=== PATIENT | female | born 1940 | race Caucasian/White ===

== ENCOUNTER → 2016-08-19 | Outpatient (CLI) | payer MEDICARE, BC ==
[~2016-08-19] MED LIST: FLAX SEED OIL1000 MG PO; HCTZ 25MG TAB25 MG PO; KLOR-CON 1010 MEQ PO; LOTRISONE; MULTI VITAMINS1 TAB PO; NIASPAN1000 MG PO; NIFEDICAL XL; PRILOTC; PROFE180 MG PO; PROVENTIL0.09 MG/A1 IH; SYNTHROID 0.0.025 MG PO; UNABLE; VITAMIN C500 MG PO
== END ==
LOC: MC.RAD 14:39
DX: Z12.31 Encounter for screening mammogram for malignant neoplasm of breast (principal)

== ENCOUNTER 2016-09-14 13:35 | Outpatient (RCR) | payer MEDICARE, BC | END 2016-12-13 | LOC: WSST | DX: R13.13 Dysphagia, pharyngeal phase (principal) | CPT/HCPCS: G8996-GN; G8997-GN ==

== ENCOUNTER → 2016-09-21 | Outpatient (CLI) | payer MEDICARE, BC | LOC: COL.RAD 11:10 | DX: R13.13 Dysphagia, pharyngeal phase (principal) | CPT/HCPCS: G8996-GN; G8997-GN; G8998-GN ==

== ENCOUNTER → 2017-10-04 | Outpatient (CLI) | payer MEDICARE, BC | LOC: MC.RAD 09:48 | DX: Z12.31 Encounter for screening mammogram for malignant neoplasm of breast (principal) ==

== ENCOUNTER 2017-11-09 15:33 | Inpatient (IN) | payer MEDICARE, BC ==
[~2017-11-09 15:33] MED LIST changes: +ADALAT CC60 MG PO; -FLAX SEED OIL1000 MG PO; +NATURAL FLAX1000 MG PO; -NIFEDICAL XL
[2017-12-20] MEDS ORDERED: AZILECT0.5 MG PO (08:38)
[2017-12-20] MEDS ORDERED: FLONASEALLERGY NS (08:39)
[2017-12-20] MEDS ORDERED: ZETIA 10MG TAB10 MG PO (08:39)
[2017-12-20] MEDS ORDERED: PRESERVISION1 SGL PO (08:40)
[2017-12-20] MEDS ORDERED: [UNRECOGNIZED DRUG - OTHER] PO (08:40)
[2017-12-20] MEDS ORDERED: THERATEARS 0.60.6 ML OP (08:41)
[2017-12-20] MEDS ORDERED: SYSTANE 0.4%-0.1 SOL OP (08:41)
[2017-12-20] MEDS ORDERED: PROCARDIA XL 6060 MG PO (08:45)
[2018-02-06 15:55] VITALS: BP 105/49; PULSE 66; TEMP 97.3
[2018-02-06 16:10] VITALS: BP 114/49; PULSE 61
[2018-02-06 16:25] VITALS: BP 105/49; PULSE 58
[2018-02-06 16:40] VITALS: BP 114/49; PULSE 61
[2018-02-06 17:10] VITALS: BP 112/52; PULSE 59
[2018-02-06 17:40] VITALS: BP 126/55; PULSE 61
[2018-02-07 00:34] VITALS: BP 144/79; PULSE 80; TEMP 98.3
[2018-02-07 03:37] VITALS: BP 110/63; PULSE 54; TEMP 98.6
[2018-02-07 07:30] LABS: HEMOGLOBIN 11.7 g/dl (12.5-16.0)
[2018-02-07 07:35] LABS: HEMATOCRIT 35.2 % (37.0-47.0)
[2018-02-07 08:22] VITALS: BP 115/67; PULSE 62; TEMP 97.6
[2018-02-07 12:10] VITALS: BP 102/45; PULSE 57; TEMP 97.7
[2018-02-07 16:26] VITALS: BP 113/56; PULSE 61; TEMP 97.7
[2018-02-07 21:09] VITALS: BP 134/58; PULSE 81; TEMP 98
[2018-02-08 00:26] VITALS: BP 127/60; PULSE 92; TEMP 98
[2018-02-08 04:45] VITALS: BP 117/49; PULSE 60; TEMP 98.5
[2018-02-08 08:50] VITALS: BP 138/54; PULSE 73; TEMP 98.1
[2018-02-08 11:40] VITALS: BP 125/53; PULSE 76; TEMP 98.5
[2018-02-08] MEDS ORDERED: ASPI325T6 PO (14:57)
[2018-02-08] MEDS ORDERED: NORCO 325 MG-7.1 TAB PO (14:58)
[2018-02-08] MEDS ORDERED: ROXICODONE 55 MG/TAB PO (14:59)
[2018-02-08 15:44] VITALS: BP 128/55; PULSE 70; TEMP 98.1
[2018-02-08 21:15] VITALS: BP 149/54; PULSE 87; TEMP 97.6
[2018-02-09 00:27] VITALS: BP 114/48; PULSE 75; TEMP 98.4
[2018-02-09 03:55] VITALS: BP 121/51; PULSE 77; TEMP 97.4
[2018-02-09 08:28] VITALS: BP 122/51; PULSE 78; TEMP 97.8
[2018-02-09 10:46] VITALS: BP 122/51; PULSE 78; TEMP 97.8
[2018-02-09 11:35] VITALS: BP 119/49; PULSE 69; TEMP 98.1
== END 2018-02-09 13:00 | DRG 470 ==
LOC: JCC 01-01 11:00
PROVIDERS: Orthopaedic Surgery
PROC: 0SR904A Replacement of Right Hip Joint with Ceramic on Polyethylene Synthetic Substitute, Uncemented, Open Approach (ICD-10-PCS; principal; 2018-02-06 07:30)
DX: M16.11 Unilateral primary osteoarthritis, right hip (principal); I10 Essential (primary) hypertension; M79.7 Fibromyalgia; J45.909 Unspecified asthma, uncomplicated; E78.5 Hyperlipidemia, unspecified
CPT/HCPCS: A4314; A9284; C1713; C1776; J0690; J2250; J2704; J3010; J7120

== ENCOUNTER → 2018-01-31 | Outpatient (CLI) | payer MEDICARE, BC ==
[~2018-01-31] MED LIST changes: +AZILECT0.5 MG PO; +FLONASEALLERGY NS; +PRESERVISION1 SGL PO; +PROCARDIA XL 6060 MG PO; +SYSTANE 0.4%-0.1 SOL OP; +THERATEARS 0.60.6 ML OP; +ZETIA 10MG TAB10 MG PO; +[UNRECOGNIZED DRUG - OTHER] PO
[2018-01-31 12:06] LABS: HIV 1/2 Antibodies Non-Reactive; HIV-1p24 Antigen Non-Reactive
== END ==
LOC: COL.LAB 11:04
PROVIDERS: Orthopaedic Surgery
DX: Z01.812 Encounter for preprocedural laboratory examination (principal); M16.11 Unilateral primary osteoarthritis, right hip

== ENCOUNTER → 2018-05-09 | Outpatient (CLI) | payer MEDICARE, BC ==
[~2018-05-09] MED LIST changes: +ASPI325T6 PO; +NORCO 325 MG-7.1 TAB PO; +ROXICODONE 55 MG/TAB PO
== END ==
LOC: COL.RAD 12:28
DX: R22.1 Localized swelling, mass and lump, neck (principal)

== ENCOUNTER 2018-06-08 10:15 | Day surgery (SDC) | payer MEDICARE, BC ==
[~2018-06-08] VITALS: Ht 162.6 cm; Wt 85.6 kg
[2018-06-08 11:09] VITALS: BP 151/73; PULSE 66; TEMP 97.6
[2018-06-08] MEDS ORDERED: VITAMIN C500 MG PO (11:28)
[2018-06-08] MEDS ORDERED: VITAMIN D250 MCG PO (11:28)
[2018-06-08] MEDS ORDERED: OSTEO-BI-FLEX 21 TAB PO (11:29)
[2018-06-08] MEDS ORDERED: FOLIC ACID 40400 MCG PO (11:29)
--- NOTE | 2018-06-08 11:48 | NUR ---
Initial visit; Patient requested prayer prior to surgical procedure. Field Spec offered encouragement and prayer.
[2018-06-08 13:50] VITALS: BP 137/59; PULSE 73; TEMP 97.3
--- NOTE | 2018-06-08 13:50 | NUR ---
Patient brought back to bay 5. Alert and oriented. Vital signs obtained, WNL. States she would like orange juice and muffin tolerating well. Sanchez set to the 2 areas of right neck intact. No complaints of pain or nausea. Son Gene at bedside. Call dietrich within reach, will continue to monitor.
[2018-06-08 14:05] VITALS: BP 146/71; PULSE 80
--- NOTE | 2018-06-08 14:05 | NUR ---
Patient states she is feeling well. All juice and muffin consumed without difficulty. Family at bedside. Call dietrich within reach will continue to monitor.
[2018-06-08 14:25] VITALS: BP 132/64; PULSE 77; TEMP 98
--- NOTE | 2018-06-08 14:25 | NUR ---
Patient states that she is ready to go home. Ambulated to bathroom without difficulty. Spontaneous void obtained. Will continue to monitor.
[2018-06-08 14:27] VITALS: BP 137/59; PULSE 14; TEMP 97.8
--- NOTE | 2018-06-08 14:50 | NUR ---
Discharge instructions reviewed with patient. Verbalized understanding. Follow up appointment card given. IV removed per MD orders.
--- NOTE | 2018-06-08 15:01 | NUR ---
Patient wheeled down to lobby via wheel chair. Son Gene to drive patient home.
== END 2018-06-08 15:01 | disposition home or self-care (01) ==
LOC: SDCO 10:15
DX: L72.0 Epidermal cyst (principal); E03.9 Hypothyroidism, unspecified; I10 Essential (primary) hypertension; J45.909 Unspecified asthma, uncomplicated; Z85.828 Personal history of other malignant neoplasm of skin; Z79.899 Other long term (current) drug therapy; K21.9 Gastro-esophageal reflux disease without esophagitis; E78.00 Pure hypercholesterolemia, unspecified; G20 Parkinson's disease; M10.9 Gout, unspecified; Z90.710 Acquired absence of both cervix and uterus; Z90.49 Acquired absence of other specified parts of digestive tract; Z96.641 Presence of right artificial hip joint; Z80.8 Family history of malignant neoplasm of other organs or systems; M79.7 Fibromyalgia; G89.29 Other chronic pain; M25.561 Pain in right knee
CPT/HCPCS: J0690; J1100; J1885; J2250; J2405; J2704; J3010; J7120

== ENCOUNTER → 2018-10-08 | Outpatient (CLI) | payer MEDICARE, BC ==
[~2018-10-08] MED LIST changes: +FOLIC ACID 40400 MCG PO; +OSTEO-BI-FLEX 21 TAB PO; +VITAMIN D250 MCG PO
== END ==
LOC: MC.RAD 10:59
DX: Z12.31 Encounter for screening mammogram for malignant neoplasm of breast (principal)

== ENCOUNTER → 2019-10-10 | Outpatient (CLI) | payer MEDICARE, BC | LOC: MC.RAD 10:59 | DX: Z12.31 Encounter for screening mammogram for malignant neoplasm of breast (principal) ==

== ENCOUNTER 2023-01-24 10:21 | Inpatient (IN) | payer MEDICARE, BC ==
[2023-01-24] VITALS (526 sets, daily range): BP systolic 115–152; BP diastolic 62–65; PULSE 68–71; TEMP 97.4–97.7; O2SAT 82–100
[~2023-01-24] VITALS: Ht 165.1 cm; Wt 80.1 kg
[~2023-01-24 10:21] MED LIST changes: -PRILOTC; +PRILOTC PO
[2023-01-24 10:45] LABS: BASO # 0.1 K/mm3 (0.0-0.2); BASO % 0.8 % (0.0-2.0); EOS % 0.1 % (0.0-4.0); GRAN # 5.3 K/mm3 (1.4-6.5); GRAN % 68.7 % (42.2-75.2); HEMATOCRIT 40.7 % (37.0-47.0); HEMOGLOBIN 13.5 g/dl (12.5-16.0); LYMPH # 1.9 K/mm3 (1.2-3.4); LYMPH % 24.7 % (20.0-51.0); MEAN CELL VOLUME 81 fl (80.0-100.0); MEAN CORPUSCULAR HEMOGLOBIN 27 pg (27-31); MEAN CORPUSCULAR HGB CONC 33 g/dl (33.0-37.0); MEAN PLATELET VOLUME 11.1 fl (7.4-10.4); MONO # 0.4 K/mm3 (0.1-0.6); MONO % 5.6 % (1.7-9.3); PLATELET COUNT 155 K/mm3 (130-400); RED BLOOD COUNT 5.01 M/mm3 (4.10-5.30); REDCELL DISTRIBUTION WIDTH-CV 20.7 % (11.5-14.5)
[2023-01-24 11:06] LABS: ALBUMIN 4.1 gm/dL (3.4-4.8); CREATININE, serum 1.2 mg/dL (0.57-1.11); TOTAL PROTEIN 6.6 gm/dL (6.2-8.1)
[2023-01-24 11:09] LABS: POTASSIUM 2.8 mmol/L (3.5-4.5)
[2023-01-24 11:19] LABS: INR 1.1 (0.8-3.0); PROTHROMBIN TIME 11.9 SECONDS (9.7-12.8)
[2023-01-24] MEDS ORDERED: EXELON3 MG PO (12:57)
[2023-01-24 12:59] LABS: COLLECTION METHOD CLEAN CATCH
[2023-01-24 14:03] LABS: PH 5.5 (5.0-8.5); URINE APPEARANCE Clear (CLEAR/HAZY); URINE BLOOD 1+ (NEGATIVE); URINE COLOR Yellow (YELLOW); URINE GLUCOSE Negative (NEGATIVE); URINE KETONE 4+ (NEGATIVE); URINE NITRATE Negative (NEGATIVE); URINE PROTEIN(semi-quant) Negative (NEGATIVE); URINE UROBILINOGEN 0.2 E.U/dL (0.2-1.0)
--- NOTE | 2023-01-24 14:45 | NUR ---
Patient up to room in IMCU from ED. Patient awake, alert, oriented x3, unable to state date, knows correct year. Repetitive and forgetful at times. Laceration to back of head, dried blood surrounding site, sutures and nona in place. Dizzy upon standing with one episode of emesis when walking a few steps to the toilets. PRN given as ordered. Denies shortness of breath. front desk monitor in place, bed in lowest position with call light within reach. Bed alarm on with fall precautions in place.
--- NOTE | 2023-01-24 16:20 | NUR ---
Song (Maycol) and Daughter (Wendy) both involved in patient's care. Maycol's preferred phone number is: [phone]. Wendy's preferred phone number is: [phone].
[2023-01-25] VITALS (864 sets, daily range): BP systolic 112–132; BP diastolic 55–104; PULSE 70–91; TEMP 97.4–97.9; O2SAT 85–100
[2023-01-25 04:45] LABS: CALCIUM 7.7 mg/dL (8.4-10.2); CREATININE, serum 0.85 mg/dL (0.57-1.11); MAGNESIUM 1.8 mg/dL (1.6-2.6)
[2023-01-25 04:50] LABS: POTASSIUM 2.8 mmol/L (3.5-4.5)
--- NOTE | 2023-01-25 07:48 | NUR ---
PATIENT IS RESTING IN BED, DENIES PALPITATIONS, NAUSEA, SOB. ECG CONFIRMED AFIB AT 0728, BLOOD PRESSURE ELEVATED 116/104. AFEBRILE. OTHERWISE, PATIENT IS FEELING OVERALL "OK" TODAY.
--- NOTE | 2023-01-25 09:58 | NUR ---
Initial visit; Patient thanked Marquetry Worker for looking in on her and offering prayer and God's blessings. Patient concerned about moving into town from her country home but thinks this latest fall may be trying to tell her it is time. She has a son who is also encouraging the move and seems to check on and look out for "mom." Marquetry Worker thanked God for her son and wished her good health and God's blessings.
--- NOTE | 2023-01-25 10:23 | NUR ---
Manager Risk met with Patient at bedside in [facility] to conduct Care Managment Assessment and discuss discharge planning. Patient lives in [place], [place] alone and is established with PCP Dr. Altamirano. Patient states that her children, Maycol and Wendy are her best familial DPOAHC. Patient is covered by [facility] and states to not be sure which pharmacy would be best for discharge medications. Patient states that she fell down concrete steps having missed a step but was independent with ADL/IADLs prior to admission. Patient denies the use of DME prior to amdission. Sesar with PT infomred this SW that Patient will potentially benefit from IPR. SW briefed IPR to Patient who states that she would be willing to speak with IPR reps. Patient also states that she is having short term memory loss. Discharge Plan: Potentially IPR.
[2023-01-25 15:09] LABS: PARTIAL THROMBOPLASTIN TIME 36.7 SECONDS (26.0-37.0)
--- NOTE | 2023-01-25 16:30 | NUR ---
Report given to suri Prieto to room 356.
--- NOTE | 2023-01-25 16:30 | NUR ---
PATIENT CAME UP TO THE UNIT WITH ICU NURSE. PATIENT IS AXOX2-SELF AND PLACE. ASSESSMENT IS COMPLETE. AFIB WITH RATE CONTROLLED IN 70-80S. IV FLUIDS RUNNING AT 75ML PER HOUR IN RFA 20G IV. VSS. PATIENT CONTINUES TO STATE THAT SHE IS MAD AT HER SON FOR BRINGING HER IN HERE, AND THAT HE WANTS TO SEND HER AWAY TO REHAB. PATIENT HAS ASKED MULTIPLE TIMES WHERE HER PURSE IS. NURSING CONTINUES TO REMIND PATIENT THAT SHE FELL AND HIT HER HEAD AND IS HERE FOR OBSERVATION AND TO GET STRONGER. PATIENT DOES NOT WANT TO GO TO ASSISTED LIVING OR REHAB. PER ICU NURSE, FAMILY STATES THE PATIENT HAS SHORT TERM MEMORY LOSS, BUT SINCE THE FALL IT HAS WORSENED. PATIENT IS FORGETFUL. PATIENT IS SITTING IN BED WITH X3 BED RAILS UP. CALL LIGHT WITHIN REACH, AND EATING HER DINNER MEAL. NPO AT MIDNIGHT FOR CARDIOVERSION. 01/26
--- NOTE | 2023-01-25 23:31 | NUR ---
Patient assessed around 1999. Alert and oriented, but forgetful. Keeps asking about going home tomorrow. Has made multiple calls to family trying to get a ride set up for tomorrow. Aware that she has a procedure tomorrow. Encouraged to try and get some rest tonight. Denies having pain and discomfort except to nona on back of head from laceration from fall. Denies wanting anything for pain. Peripheral IV to right forearm with IV fluids running per orders. Denies SOB and dyspnea. LS CTA. HRI. Telemetry showing A-fib, rate controlled. Plan for LINDA/CV tomorrow. NPO after midnight. BSAx4. 2+ edema BLE. Voices no questions, needs, or concerns at this time. In bed with call light within reach. High fall risk precautions in place. Bed alarm on.
[2023-01-26] VITALS (16 sets, daily range): BP systolic 109–162; BP diastolic 51–82; PULSE 65–100; TEMP 97.3–98
--- NOTE | 2023-01-26 00:09 | NUR ---
IV to right forearm infiltrated. New one placed to right forearm.
--- NOTE | 2023-01-26 01:13 | NUR ---
Patient with runny nose and cough. New order to check for Covid-19, as well as Influenza A&B. Taken to lab.
--- NOTE | 2023-01-26 02:41 | NUR ---
Patient has been very anxious regarding cardioversion. Patient states that her doctor said she needs open heart surgery, and we cant do that here. This nurse explained that the plan was to shock her heart into a normal rhythm and to look at her heart today, there was no open heart surgery planned. Voiced understanding, but later stated she had to have open heart surgery, and did not want to just shock her heart here. Had to keep reminding patient why she is here. Keeps stated we are keeping her captive and she needs to leave. Reminded of time, but unable to redirect. Spoke with MESERET Rao. New order received for IV Ativan.
--- NOTE | 2023-01-26 06:14 | NUR ---
Patient able to rest for about an hour after Ativan. Patient continues to be confused, unable to redirect, but not argumentative or angry with staff. Gave medications with sips of water, but otherwise has been NPO since midnight for scheduled LINDA/CV today. Patient did pull out IV to left forearm. New one started to left hand. In bed with call light within reach. High fall risk precautions in place. Bed alarm on.
--- NOTE | 2023-01-26 06:32 | NUR ---
AROUND 0, PT REFUSED TO HAVE HER VITALS BE TAKEN AND STATED SHE DID NOT WANT ANYTHING FROM RT DONE BECAUSE SHE WAS GOING AMA ONCE SHE COULD LOCATE HER CLOTHES BECAUSE "THIS PLACE IS UNETHICAL AND TRYING TO TAKE HER AGAINST HER WISHES", RT ACKNOWLEDGED PT'S RIGHT TO REFUSE AND INFORMED RN.
[2023-01-26 06:33] LABS: BASO # 0.1 K/mm3 (0.0-0.2); BASO % 0.6 % (0.0-2.0); EOS # 0.1 K/mm3 (0.0-0.7); EOS % 0.9 % (0.0-4.0); GRAN # 4.4 K/mm3 (1.4-6.5); GRAN % 54.7 % (42.2-75.2); HEMATOCRIT 40.8 % (37.0-47.0); HEMOGLOBIN 13.8 g/dl (12.5-16.0); LYMPH # 2.7 K/mm3 (1.2-3.4); LYMPH % 33.1 % (20.0-51.0); MEAN CELL VOLUME 80 fl (80.0-100.0); MEAN CORPUSCULAR HEMOGLOBIN 27 pg (27-31); MEAN CORPUSCULAR HGB CONC 34 g/dl (33.0-37.0); MEAN PLATELET VOLUME 11.1 fl (7.4-10.4); MONO # 0.9 K/mm3 (0.1-0.6); MONO % 10.6 % (1.7-9.3); PLATELET COUNT 178 K/mm3 (130-400); RED BLOOD COUNT 5.11 M/mm3 (4.10-5.30); REDCELL DISTRIBUTION WIDTH-CV 21.1 % (11.5-14.5)
[2023-01-26 06:39] LABS: PROTHROMBIN TIME 11.1 SECONDS (9.7-12.8)
[2023-01-26 06:49] LABS: CALCIUM 8.7 mg/dL (8.4-10.2); CREATININE, serum 0.85 mg/dL (0.57-1.11); POTASSIUM 3.6 mmol/L (3.5-4.5)
[2023-01-26 07:14] LABS: TSH w REFLEX 2.088 uIU/mL (0.350-4.940)
--- NOTE | 2023-01-26 07:38 | NUR ---
ASSESSMENT COMPLETE. VSS. IV FLUIDS ARE RUNNING IN THE LHAND, AND POTASSIUM 10MEQ IS ON SECONDARY LINE. PATIENT IS LAYING DOWN IN THE BED. STATES THAT SHE IS NOT SUPPOSED TO BE HERE, AND THAT SHE NEEDS TO GET TO WORK. NURSING STAFF REORIENTED THE PATIENT THAT SHE IS AT [facility] IN [place]. PATIENT STATED, "YES I KNOW. MY MEMORY HAS GOTTEN BAD, AND MY CHILDREN THINK THAT I'M GOING TO NEED TO GET SOME HELP" PATIENT IS NOT BEING AGGRESSIVE AT THIS TIME. X3 BED RAILS UP WITH BED ALARM ON. CALL LIGHT WITHIN REACH.
--- NOTE | 2023-01-26 07:57 | NUR ---
CALLED PATIENT'S SON TO GET VERBAL CONSENT FOR TRANSESOPHAGEAL ECHOCARDIAGRAM WITH ELECTIVE CARDIOVERSION. PATIENT SON AND SISTER WERE ON THE PHONE. BOTH GAVE VERBAL CONSENT. JESSE MARTINEZ, WAS THE SECOND NURSE WHO WAS PRESENT FOR CONSENT.
--- NOTE | 2023-01-26 09:34 | NUR ---
PATIENT WAS INSISTENT UPON NOT HAVING LINDA CARDIOVERSION THIS MORNING. THOUGH CONSENT WAS VERBALLY COMPLETED BY FAMILY MEMBERS, PATIENT HAS SHOWN INCREASED AGITATION ABOUT GOING DOWN FOR THE PROCEDURE, AND IS VERY FIRM. NURSING CALLED TO RAMP LEAD TO COME UP AND SPEAK WITH THE PATIENT. PATIENT IS ABLE TO STATE HER NAME, BIRTHDAY, YEAR, AND THAT SHE IS AT [facility], BUT HER ORIENTATION WAXES AND WANES. DR. CARTY WAS NOTIFIED TO COME AND HAVE A CONVERSATION WITH THE PATIENT. AFTER SPEAKING WITH THE PATIENT, PHYSICIAN FELT IT WAS NOT APPROPRIATE TO CONTINUE MOVING FORWARD WITH THE PROCEDURE, SEEING THAT THE PATIENT IS IN SUCH DISTRESS OVER IT. PATIENT IS RESTING IN BED. NURSING NOTIFIED FAMILY ON PATIENTS REFUSAL FOR PROCEDURE.
--- NOTE | 2023-01-26 10:00 | NUR ---
PATIENT SPOKE WITH SON ON THE PHONE WHO IS IN THE HEALTHCARE FIELD, AND HAS NOT DECIDED THAT SHE WILL DO THE LINDA/CARDIOVERSION. NURSING SPOKE WITH TOBACCO PACKING MACHINE OPERATOR AND DR. CARTY ABOUT NOW DOING THE PROCEDURE. AGREED THAT THEY CAN COME AND GET THE PATIENT AT 1100, NEW IV STARTED TO THE RAC 22G. PATIENT IS RESTING IN BED WITH X3 BEDRAILS UP. BED ALARM ON.
--- NOTE | 2023-01-26 10:37 | NUR ---
Casing Mixer met with Patient's son and daughter outside of room on 01-25-23 per their request. Patient is reported to have chronic short term memory concerns. Patient's son states that Patient has also not been able to maintain her home explaining that Patient's furnace has not been working and the issue has not been resolved. Patient's son and daughter advocate for long-ter placment of AL or Nursing facility. SW briefed that post-acute rehab is recommended and during discussion with Patient she is willing to meet with IPR staff. SW reviewed options of SNF and IPR for post acute care. Patient's son states that he brought DPOAHC in and it is in chart. Patient continues to present confused at this time. PAtient's family choose to move forward with IPR referral as PAtient becomes irritable when discussing other placment options with them.
--- NOTE | 2023-01-26 12:45 | NUR ---
PATIENT IS BACK UP ON THE UNIT. RECEIVED REPORT FROM AUTO WINDER, RN. LOPEZ IS SLEEPING IN BED WITH ALARM ON. ON 2L NC. VSS BP 146/66
--- NOTE | 2023-01-26 23:13 | NUR ---
Patient agitated and confused around 2019. Unable to redirect. Call placed to MESERET Rao, new order for Ativan received. Assessed at 2109, and given PRN Ativan, as we as Melatonin and Acetaminophen per Maira. Patient able to be redirected, but forgets within a few minutes where she is, why she is here, etc. Patient assisted into bed, and given word puzzle book to work on. Laying in bed with eyes closed at this time. HRR. Remains in sinus rhythm on telemetry. High fall risk precautions in place. Bed alarm on.
[2023-01-27] VITALS (7 sets, daily range): BP systolic 124–159; BP diastolic 62–84; PULSE 74–82; TEMP 97.6–98
--- NOTE | 2023-01-27 05:49 | NUR ---
Patient had been given PRN Ativan around 2109 last night for anxiety, aggitation, and paranoia. Patient has been able to sleep since about 2199. Staff allowed rest during the night, and did not wake up for cares, as patient would get confused and aggitated with cares. IV fluids left off of patient since she has pulled out 3 IVs and has had 3 other IVs infiltrate due to patient messing with IV. Patient pulling at IV anytime IV fluids connected to her. VS this morning stable. Allowed staff to complete EKG and draw blood without any aggitation. Patient in bed with call light within reach. High fall risk precautions in place. Bed alarm on.
[2023-01-27 06:14] LABS: HEMATOCRIT 39.2 % (37.0-47.0); HEMOGLOBIN 12.8 g/dl (12.5-16.0); MEAN CELL VOLUME 82 fl (80.0-100.0); MEAN CORPUSCULAR HEMOGLOBIN 27 pg (27-31); MEAN CORPUSCULAR HGB CONC 33 g/dl (33.0-37.0); MEAN PLATELET VOLUME 10.8 fl (7.4-10.4); PLATELET COUNT 158 K/mm3 (130-400); RED BLOOD COUNT 4.76 M/mm3 (4.10-5.30); REDCELL DISTRIBUTION WIDTH-CV 21.6 % (11.5-14.5)
[2023-01-27 06:29] LABS: CALCIUM 8.3 mg/dL (8.4-10.2); CREATININE, serum 0.77 mg/dL (0.57-1.11); MAGNESIUM 1.8 mg/dL (1.6-2.6); POTASSIUM 3.4 mmol/L (3.5-4.5)
--- NOTE | 2023-01-27 09:30 | NUR ---
Patient is sitting up in the recliner, alert and oriented x 3, Awaiting for her breakfast. Telemetry in plac NSR, Cooperative taking medications. Assessment completed, some pain and discomfort in her head r/t fall. No further needs at this time. Call light within reach.
--- NOTE | 2023-01-27 16:22 | NUR ---
Search Developer met with patient's children, Kimberly and Gene to discuss discharge plan. SW advised IPR was still reviewing and discussed a second preference. Family advised if IPR cannot take, they would want [facility] in [place]. [facility] faxed them a referral at fax #[phone]. Later in the afternoon, IPR Director updated [facility] that they will accept patient. Discharge Plan: IPR today
--- NOTE | 2023-01-27 17:24 | NUR ---
Pt to be transfered to room 338 for IPR F/U. IV access and telemetry were discontinued. Report given to JUAN Romero.
== END 2023-01-27 18:00 | DRG 683 ==
LOC: COL.ER 10:21 → IMCU 11:43 → MEDICAL 11:43 → IMCU 19:44 → MEDICAL 01-25 16:06
PROVIDERS: Internal Medicine; Physician Assistant; ADMIT Internal Medicine
DX: N17.9 Acute kidney failure, unspecified (principal); E87.20 Acidosis, unspecified; G93.40 Encephalopathy, unspecified; S06.9XAA Unspecified intracranial injury with loss of consciousness status unknown, initial encounter; M62.82 Rhabdomyolysis; T68.XXXA Hypothermia, initial encounter; E87.6 Hypokalemia; E03.9 Hypothyroidism, unspecified; G20.A1 Parkinson's disease without dyskinesia, without mention of fluctuations; E78.5 Hyperlipidemia, unspecified; I10 Essential (primary) hypertension; K21.9 Gastro-esophageal reflux disease without esophagitis; I48.91 Unspecified atrial fibrillation; Z79.01 Long term (current) use of anticoagulants; Z66 Do not resuscitate
CPT/HCPCS: J0690; J1650; J2060; J2405; J2704; J3475; J3480; J7030